=== PATIENT | male | born 1990 | race American Indian/Alaskan Native ===

== ENCOUNTER 2019-08-14 17:03 | Emergency (ER) | payer SELFPAY ==
[2019-08-14 17:50] VITALS: BP 115/69
--- NOTE | 2019-08-14 19:36 | Event Note ---
ED Screening Note Date of service: 08/14/19 Time: 19:34 ED Screening Note: 28 yo presents cc of penile lesions x 3 days denies testicular pain This initial assessment/diagnostic orders/clinical plan/treatment(s) is/are subject to change based on patients health status, clinical progression and re- assessment by fellow clinical providers in the ED. Further treatment and workup at subsequent clinical providers discretion. Patient/guardian urged not to elope from the ED as their condition may be serious if not clinically assessed and managed. Initial orders include: acc eval
--- NOTE | 2019-08-14 22:11 | Emergency Department Report ---
Chief Complaint: Urogenital-Male Stated Complaint: SINUS/STD CK Time Seen by Provider: 08/14/19 22:08 - HPI History of Present Illness: 28 yo presents cc of penile lesions x 3 days. Patient denies any symptoms such as dysuria, fever, nausea vomiting, abdominal pain he denies testicular pain - ROS Review of Systems: As noted in HPI - Exam Vital Signs: Vital Signs 08/14/19 17:46 Temperature 99.2 F Pulse Rate 78 Respiratory 17 Rate Blood Pressure 115/69 O2 Sat by Pulse 100 Oximetry Physical Exam: UROGENITAL: Ulcerated lesion on pain or shaft posterior. Lesion is about 3-4 cm in diameter MSE screening note: Focused history and physical exam performed. Due to findings the following was ordered: ED Medical Decision Making - Medical Decision Making 28-year-old male presents with penile lesion. Discussed with patient that this is not a medical emergency and needs to follow- up with [facility] or health Department for STD screening. I discussed possibility of syphilis with the patient. Patient states he was recently tested and was negative. Discussed the patient to follow-up to be screened and tested again. Discussed with mother and patient both state they understand and will follow up tomorrow. [facility] medical brochure given to patient Signs are normal ,he's in no acute distress ED Disposition for MSE Clinical Impression: Penile lesion Disposition: Z-07 MED SCREENING EXAM-LEFT Is pt being admited?: No Does the pt Need Aspirin: No Condition: Stable Instructions: Wound Infection (ED) Additional Instructions: follow up with health department for STD screening take and use medication as prescribed
== END 2019-08-14 23:07 | disposition left against medical advice (07) ==
LOC: ED 17:03
DX: L98.9 Disorder of the skin and subcutaneous tissue, unspecified (principal)
CPT/HCPCS: 99282